=== PATIENT | female | born 1990 | race African-American/Black ===

== ENCOUNTER 2024-02-18 03:43 | Emergency (ER) | payer MEDICAID ==
[~2024-02-18] VITALS: Ht 162.6 cm; Wt 76.8 kg
[2024-02-18 03:56] VITALS: BP 125/70; PULSE 110; TEMP 100.5; O2SAT 99
[2024-02-18 04:24] LABS: CLARITY URINE CLOUDY (CLEAR); COLOR URINE DARK YELLOW (YELLOW); GLUCOSE URINE NEGATIVE (NEGATIVE); KETONES URINE 2+ (NEGATIVE); LEUKOCYTE ESTERASE URINE NEGATIVE (NEGATIVE); NITRITE URINE NEGATIVE (NEGATIVE); OCCULT BLOOD URINE 1+ (NEGATIVE); PH URINE 5.5 (4.5-8.0); PROTEIN URINE 1+ (NEGATIVE); SPECIFIC GRAVITY URINE 1.028 (1.005-1.030); UROBILINOGEN URINE 0.2 E.U./dL (0.2-1.0)
[2024-02-18] MEDS: ONDANSETRON 4MG ODT PO ONE (04:45)
[2024-02-18] MEDS: ACETAMINOPHEN 325MG TABLET PO ONE (04:45)
[2024-02-18 05:15] VITALS: RESP 16
[2024-02-18 06:09] LABS: SQUAMOUS EPITHELIAL CELL URINE 1+ /lpf (RARE/1+)
[2024-02-18 06:11] LABS: RBC URINE 0-2 /hpf (0-2); WBC URINE 0-2 /hpf (0-2)
[2024-02-18 06:12] LABS: BACTERIA URINE 1+
== END 2024-02-18 05:15 | disposition home or self-care (01) ==
LOC: ER 03:43
DX: B34.9 Viral infection, unspecified (principal)
CPT/HCPCS: 99283; 81003; 81025; Q0162